=== PATIENT | female | born 1995 | race Caucasian/White ===

== ENCOUNTER 2018-09-09 07:44 | Emergency (ER) | payer MEDICARE, MEDICAID ==
[2018-09-09] MEDS ORDERED: PROMETHAZINE HCL 12.5 MG in 0.9 % SODIUM CHLORIDE 100ML 100 ML IVPB ONE ×2 (07:49→08:10)
[2018-09-09] MEDS ORDERED: 0.9 % SODIUM CHLORIDE 1,000 ML BAG IV ONE ×2 (07:49→08:37)
[2018-09-09] MEDS ORDERED: DIPHENHYDRAMINE HCL 50 MG/ML VIAL IVP ONE (07:49)
--- NOTE | 2018-09-09 07:56 | Emergency Department Record ---
History of Present Illness - General Chief complaint: Vomiting Stated complaint: VOMITING Time Seen by Provider: 09/09/18 07:48 Source: Patient Mode of Arrival: Ambulatory Limitations: No limitations - History of Present Illness Initial comments: 23 yo female presents with about 1.5 hours of nausea, vomiting and diarrhea. No fever. No blood in the vomit or diarrhea. She was normal yesterday and when she went to bed. No history of gastrointestinal chronic disease. No known sick contacts. No recent travel or antibiotics. No history of intra- abdominal surgery. She has waves of associated cramps. MD complaint: Diarrhea, Nausea, Vomiting Onset/Timin -: Hour(s) Description of Vomiting: Food contents, Watery Associated Abdominal Pain: Yes Location: Epigastric Radiation: None Severity: Moderate Severity scale (1-10): 10 Quality: Cramping, Sharp Consistency: Constant Improves with: None Worsens with: Vomiting Associated Symptoms: Nausea/vomiting - Related Data Previous Rx's Medication Instructions Recorded Ondansetron [Zofran Odt] 4 mg PO Q8H #15 tab.rapdis 09/09/18 Allergies Allergy/AdvReac Type Severity Reaction Status Date / Time penicillin V Allergy Unknown PT UNSURE Verified 04/21/15 13:34 OF REACTION codeine AdvReac Unknown PT UNSURE Verified 04/21/15 13:34 OF REACTION Travel Screening - Travel/Exposure Within Last 30 Days Have you traveled within the last 30 days?: No Review of Systems Constitutional: Denies: Chills, Fever, Malaise, Weakness Eyes: Denies: Eye discharge, Eye pain, Photophobia, Vision change ENT: Denies: Congestion, Throat pain Respiratory: Denies: Cough, Dyspnea Cardiovascular: Denies: Chest pain, Palpitations, Syncope Endocrine: Denies: Fatigue Gastrointestinal: Reports: Abdominal pain, Diarrhea, Nausea, Vomiting. Denies: Constipation Genitourinary: Denies: Dysuria, Urgency Musculoskeletal: Denies: Arthralgia, Back pain, Myalgia Skin: Denies: Bruising, Change in color, Rash Neurological: Denies: Headache Psychiatric: Denies: Anxiety Hematological/Lymphatic: Denies: Easy bleeding, Easy bruising, Swollen glands Past Medical History - SOCIAL HISTORY Smoking Status: Current every day smoker - RESPIRATORY Hx Respiratory Disorders: No - CARDIOVASCULAR Hx Cardio Disorders: No - NEURO Hx Neuro Disorders: Yes Hx Headaches: Yes - GI Hx GI Disorders: Yes Hx Hiatal Hernia: Yes - Hx Genitourinary Disorders: Yes Hx Kidney Stones: Yes - ENDOCRINE Hx Endocrine Disorders: No - MUSCULOSKELETAL Hx Musculoskeletal Disorders: No - PSYCH Hx Psych Problems: No - HEMATOLOGY/ONCOLOGY Hx Hematology/Oncology Disorders: No Family Medical History Any Significant Family History?: No Physical Exam - General General Appearance: Alert, Oriented x3, Cooperative, No acute distress Limitations: No limitations - Head Head exam: Atraumatic, Normal inspection - Eye Eye exam: Normal appearance. negative: Conjunctival injection, Scleral icterus - ENT ENT exam: Normal exam, Mucous membranes moist Ear exam: Normal external inspection Nasal Exam: Normal inspection Mouth exam: Normal external inspection - Neck Neck exam: Normal inspection - Respiratory Respiratory exam: Normal lung sounds bilaterally. negative: Respiratory distress - Cardiovascular Cardiovascular Exam: Regular rate, Normal rhythm, Normal heart sounds - GI/Abdominal GI/Abdominal exam: Soft, Normal bowel sounds. negative: Distended, Guarding, Hypoactive bowel sounds, Rebound, Rigid - Rectal Rectal exam: Deferred - exam: Deferred - Extremities Extremities exam: Normal inspection - Back Back exam: Denies: CVA tenderness (R), CVA tenderness (L) - Neurological Neurological exam: Alert, Normal gait, Oriented X3 - Psychiatric Psychiatric exam: Normal affect, Normal mood. negative: Agitated, Anxious - Skin Skin exam: Dry, Intact, Normal color, Warm Course Vital Signs 09/09/18 07:45 Temperature 98.0 F Pulse Rate 68 Respiratory 20 Rate Blood Pressure 119/73 Pulse Ox 100 - Reevaluation(s) Reevaluation #1: 09/09/18 08:35 The WBC is 20 The BMP with without significant changes. 09/09/18 08:36 HCG is negative 09/09/18 08:41 Vomiting persists after Phenergan The CMP and Lipase are normal No diarrhea in the ED 09/09/18 08:43 UDS sent prior to IV narcotic Positive cannabis. Negative otherwise. Given her pain and elevated WBC count CT ordered after risks and benefits discussed. 09/09/18 09:50 09/09/18 10:[address] was negative for any acute process. There is an irregular area in the right breast. The patient was informed and given the recommendation by the radiologist for a non emergent outpatient US of the breast 09/09/18 10:59 The pain, nausea, vomiting and diarrhea are improved and controlled. We discussed observation vs home with good instructions for a return and recheck if any concerns. We discussed the importance again of follow up of the US of the breast as well. Medical Decision Making - Lab Data Result diagrams: 09/09/18 08:10 09/09/18 08:10 Disposition Disposition: Discharge Clinical Impression: Vomiting and diarrhea Disposition: Home, Self-Care Condition: (1) Good Instructions: Acute Nausea and Vomiting (ED), Acute Diarrhea (ED) Additional Instructions: Rest and stay hydrated Take the Zofran as directed every 4-6 hours as needed Return if you have uncontrolled nausea, vomiting or pain You have an irregular area in the right breast near the out edge. You will need your doctor to schedule an outpatient US of the right breast Prescriptions: Ondansetron [Zofran Odt] 4 mg PO Q8H #15 tab.rapdis Forms: Patient Portal Access Time of Disposition: 11:00 Quality - Quality Measures Quality Measures: N/A - Blood Pressure Screening Does Patient Have Any of the Following: No Blood Pressure Classification: Normal BP Reading Systolic Measurement: 119 Diastolic Measurement: 73 Screening for High Blood Pressure: < Normal BP, F/U Not Required > [G8783]
[2018-09-09 08:15] LABS: HEMATOCRIT 45.5 % (35.0-47.0); HEMOGLOBIN 15.1 gm/dl (11.6-16.0); MEAN CORPUSCULAR HEMOGLOBIN 31.2 pg (27-33); MEAN CORPUSCULAR HGB CONC 33.2 g/dl (32-36); MEAN PLATELET VOLUME 9.7 fl (7.4-10.4); PLATELET COUNT 337 K/uL (130-400); RED BLOOD COUNT 4.84 M/uL (3.80-5.40); RED CELL DISTRIBUTION WIDTH 13.8 % (11.5-14.5)
[2018-09-09 08:22] LABS: WHITE BLOOD COUNT W/O DIFF 20.3 K/uL (4.2-12.2)
[2018-09-09 08:31] LABS: URINE APPEARANCE CLEAR; URINE BILIRUBIN NEGATIVE (NEGATIVE); URINE BLOOD NEGATIVE (NEGATIVE); URINE COLOR YELLOW; URINE GLUCOSE (UA) NEGATIVE (NEGATIVE); URINE KETONE NEGATIVE (NEGATIVE); URINE LEUKOCYTE ESTERASE NEGATIVE (NEGATIVE); URINE NITRITE NEGATIVE (NEGATIVE); URINE PROTEIN NEGATIVE (NEGATIVE); URINE UROBILINOGEN 0.2 E.U./dL (0.20 - 1.00)
[2018-09-09 08:32] LABS: BLOOD UREA NITROGEN 9 mg/dL (6-20); CREATININE 0.6 mg/dL (0.5-0.9); EST GLOMERULAR FILTRATION RATE > 60 mL/min
[2018-09-09 08:33] LABS: LIPASE 41 U/L (13-60); TOTAL PROTEIN 7.4 g/dL (6.6-8.7)
[2018-09-09 08:35] LABS: GLUCOSE,RANDOM 114 mg/dL (74-109)
[2018-09-09 08:38] LABS: ALB/GLOB RATIO 1.6 (1.1-1.8); ALBUMIN 4.5 g/dL (4.0-5.0); ALKALINE PHOSPHATASE 65 U/L (35-104); ALT/SGPT 10 U/L (<33); AST/SGOT 13 U/L (10.0-35.0)
[2018-09-09] MEDS ORDERED: ONDANSETRON HCL IV 4 MG/2 ML VIAL IVP ONE (08:42)
[2018-09-09] MEDS ORDERED: MORPHINE SULFATE 10 MG/ML VIAL IVP ONE (09:35)
[2018-09-09 09:45] LABS: AMPHETAMINE SCREEN URINE NOT DETECTED; BARBITURATE SCREEN URINE NOT DETECTED; BENZODIAZEPINE SCREEN URINE NOT DETECTED; COCAINE SCREEN URINE NOT DETECTED; METHADONE SCREEN URINE NOT DETECTED; METHAMPHETAMINE SCREEN NOT DETECTED; OPIATE SCREEN URINE NOT DETECTED; OXYCODONE SCREEN URINE NOT DETECTED; PHENCYCLIDINE SCREEN URINE NOT DETECTED; PROPOXYPHENE SCREEN URINE NOT DETECTED; THC SCREEN URINE DETECTED; TRICYCLIC ANTIDEPRESSANT SCRN NOT DETECTED
--- NOTE | 2018-09-12 13:37 | CT SCAN REPORT ---
EXAM: CT OF THE ABDOMEN AND PELVIS WITH CONTRAST HISTORY: PAIN. NAUSEA. TECHNIQUE: Routine CT images of the abdomen and pelvis were obtained following intravenous administration of contrast. The amount and type of contrast is noted in the medical record. FINDINGS: The visualized lung bases are unremarkable. Incidental note is a questionable 2.3 size range mass versus a band of breast tissue within the lower outer right breast. As it is asymmetric from breast tissue elsewhere recommend nonemergent targeted ultrasound. The liver, gallbladder, pancreas, spleen, and right adrenal gland are unremarkable. Similar thickening of the left adrenal gland as before. The kidneys enhance normally with contrast. There is a small hiatal hernia. The bowel is normal in caliber. The appendix has a normal CT appearance. The bladder is unremarkable. The uterus is present. The aorta enhances normally with contrast. No abdominal or pelvic lymphadenopathy. No free air or free fluid. Small fat containing paraumbilical hernia. No acute osseous abnormality. IMPRESSION: 1. NO CONCLUSIVE ACUTE PROCESS WITHIN THE ABDOMEN OR PELVIS. 2. SUGGESTION OF A SMALL HIATAL HERNIA. 3. SIMILAR LEFT ADRENAL THICKENING. 4. THERE IS A SOMEWHAT ASYMMETRIC 2.3 CM FOCUS WITHIN THE LOWER OUTER RIGHT BREAST. THIS COULD RELATE TO A DENSE BAND OF BREAST TISSUE THOUGH A PRECAUTION RECOMMEND TARGETED ULTRASOUND FOR FURTHER ASSESSMENT ON A NONEMERGENT BASIS. 5. OTHER CHRONIC FINDINGS ABOVE. JOB NUMBER: [id number] [facility] [facility]
== END 2018-09-09 11:16 | disposition home or self-care (01) ==
LOC: ER 07:44
DX: R11.2 Nausea with vomiting, unspecified (principal); R19.7 Diarrhea, unspecified; R10.13 Epigastric pain; N63.10 Unspecified lump in the right breast, unspecified quadrant; F12.929 Cannabis use, unspecified with intoxication, unspecified; F17.210 Nicotine dependence, cigarettes, uncomplicated
CPT/HCPCS: 99284 ×2; 96365; 96375; 96361; 83690; 80053; 81003; 84703; 80305; 85027; 74177; Q9967; J2405; J2270; J1200; J2550; J7030